=== PATIENT | female | born 1985 | race Caucasian/White ===

== ENCOUNTER → 2018-02-02 | Outpatient (CLI) | payer SELFPAY ==
[~2018-02-02] MED LIST: BCP'S; CIPR250 PO; CIPR500 PO; CYCL10 PO; HYDACE5 PO; NAPR500 PO; PHENA200 PO
[2018-02-03 16:14] LABS: Appearance, Urine Hazy (Clear); Bilirubin, Urine Neg (Neg); Blood, Urine 1+ (Neg); Color, Urine Yellow (P-Yellow); Glucose Qualitative, Urine Neg (Neg); Ketones, Urine Neg (Neg); Leukocyte Esterase, Urine 2+ (Neg); Nitrite, Urine Neg (Neg); Protein, Urine 2+ (Neg); Urobilinogen, Urine NORM (Normal)
[2018-02-03 16:37] LABS: Bacteria Not Seen /hpf; Red Blood Cells, Urine 25-50 /hpf (0-2); Squamous Epithelial Cells Not Seen /hpf (Few); White Blood Cells, Urine 25-50 /hpf (0-5)
== END | disposition home or self-care (01) ==
LOC: LAB 17:25 → LAB SHORT 17:25
PROVIDERS: Nurse Practitioner Family
DX: N39.0 Urinary tract infection, site not specified (principal)
CPT/HCPCS: 81001; 87077; 87086; 87186

== ENCOUNTER → 2019-06-13 | Outpatient (CLI) | payer OTHER | END | disposition home or self-care (01) | LOC: LAB SHORT 16:30 → LAB 16:30 | DX: O09.522 Supervision of elderly multigravida, second trimester (principal); Z3A.24 24 weeks gestation of pregnancy | CPT/HCPCS: 87086 ==

== ENCOUNTER → 2019-08-17 | Outpatient (CLI) | payer OTHER | END | disposition home or self-care (01) | LOC: LAB SHORT 12:22 → LAB 12:22 | DX: Z34.02 Encounter for supervision of normal first pregnancy, second trimester (principal) | CPT/HCPCS: 87086 ==

== ENCOUNTER → 2019-09-06 | Outpatient (CLI) | payer OTHER ==
[~2019-09-06] MED LIST changes: +CYAN500; +HYDPAM50 PO; +IBUP800 PO; +PRENATAL TABLE1 EAC2 PO; +SERT25 PO; +Vitamin D2000 UNIT
== END | disposition home or self-care (01) ==
LOC: LAB SHORT 15:58 → LAB 15:58
DX: O09.523 Supervision of elderly multigravida, third trimester (principal); Z3A.36 36 weeks gestation of pregnancy
CPT/HCPCS: 87081; 87653

== ENCOUNTER 2019-09-18 21:08 | Inpatient (IN) | payer OTHER ==
[~2019-09-18] VITALS: Ht 170.2 cm; Wt 101.0 kg
[~2019-09-18 21:08] MED LIST changes: -CYAN500; -HYDPAM50 PO; -IBUP800 PO; -PRENATAL TABLE1 EAC2 PO; -SERT25 PO; -Vitamin D2000 UNIT
[2019-09-18 21:43] LABS: BASOPHILS ABSOLUTE AUTO 0.02 K/mm3 (0.00-0.23); BASOPHILS PERCENT AUTO 0 % (0-2); EOSINOPHILS ABSOLUTE AUTO 0.03 K/mm3 (0.00-0.68); EOSINOPHILS PERCENT AUTO 0 % (0-6); Hematocrit 39.2 % (33.0-51.0); Hemoglobin 13.3 g/dL (11.5-16.0); IMMATURE GRAN ABSOLUTE AUTO 0.04 K/mm3 (0.00-0.10); IMMATURE GRAN PERCENT AUTO 0 % (0-1); LYMPHOCYTES ABSOLUTE AUTO 1.87 K/mm3 (0.84-5.20); LYMPHOCYTES PERCENT AUTO 20 % (21-46); MONOCYTES ABSOLUTE AUTO 0.82 K/mm3 (0.16-1.47); MONOCYTES PERCENT AUTO 9 % (4-13); Mean Corpuscular HGB Conc 33.9 g/dL (31.5-36.5); Mean Corpuscular Volume 88 fL (80-100); NEUTROPHILS ABSOLUTE AUTO 6.49 K/mm3 (1.96-9.15); NEUTROPHILS PERCENT AUTO 70 % (41-73); Platelet Count 200 K/mm3 (150-400); RDW Coefficient Variation 14.9 % (11.7-14.2); RDW Standard Deviation 47.2 fL (35.1-46.3); Red Blood Cell Count 4.44 M/mm3 (3.80-5.20); White Blood Cell Count 9.27 K/mm3 (4.00-11.30)
[2019-09-18] MEDS ORDERED: SERT25 PO (22:17)
[2019-09-18] MEDS ORDERED: PRENATAL TABLE1 EAC2 PO (22:18)
[2019-09-18] MEDS ORDERED: HYDPAM50 PO (22:20)
[2019-09-19 01:42] LABS: PCO2 Cord - Venous 42.8 mmHg (40-50); PO2 Cord - Venous 30.1 mmHg (28-32); pH Umbilical Cord - Venous 7.28 (7.26-7.35)
[2019-09-19 12:35] LABS: BASOPHILS ABSOLUTE AUTO 0.03 K/mm3 (0.00-0.23); BASOPHILS PERCENT AUTO 0 % (0-2); EOSINOPHILS PERCENT AUTO 0 % (0-6); Hemoglobin 11.5 g/dL (11.5-16.0); IMMATURE GRAN ABSOLUTE AUTO 0.05 K/mm3 (0.00-0.10); IMMATURE GRAN PERCENT AUTO 0 % (0-1); LYMPHOCYTES ABSOLUTE AUTO 1.78 K/mm3 (0.84-5.20); LYMPHOCYTES PERCENT AUTO 13 % (21-46); MONOCYTES ABSOLUTE AUTO 1.04 K/mm3 (0.16-1.47); MONOCYTES PERCENT AUTO 8 % (4-13); Mean Corpuscular HGB 30.4 pg (26.0-34.0); Mean Corpuscular HGB Conc 33.8 g/dL (31.5-36.5); Mean Corpuscular Volume 90 fL (80-100); Mean Platelet Volume 9.8 fL (9.1-12.4); NEUTROPHILS ABSOLUTE AUTO 10.74 K/mm3 (1.96-9.15); NEUTROPHILS PERCENT AUTO 79 % (41-73); Platelet Count 173 K/mm3 (150-400); RDW Coefficient Variation 14.9 % (11.7-14.2); RDW Standard Deviation 48.2 fL (35.1-46.3); Red Blood Cell Count 3.78 M/mm3 (3.80-5.20); White Blood Cell Count 13.64 K/mm3 (4.00-11.30)
[2019-09-20] MEDS ORDERED: IBUP800 PO (08:23)
--- NOTE | 2019-09-20 08:51 | NUR ---
D/C INSTRUCTIONS DISCUSSED AND SIGNED. PT VERY ANXIOUS TO GET HOME WITH 10 YEAR OLD AUTISTIC SON IN THE ROOM. PT CEDRICK NB AND SELF CARE. DOESN'T HAVE ANY QUESTIONS AT THIS TIME. F/U APPOINTMENTS MADE. PT TO CALL IF ANY QUESTIONS
== END 2019-09-20 08:54 | disposition home or self-care (01) | DRG 807 ==
LOC: OBS 21:08 → BC 21:24
PROVIDERS: ADMIT Family Medicine
PROC: 10E0XZZ Delivery of Products of Conception, External Approach (ICD-10-PCS; principal; 2019-09-19)
DX: O70.0 First degree perineal laceration during delivery (principal); Z37.0 Single live birth; Z3A.38 38 weeks gestation of pregnancy
CPT/HCPCS: 36415; 82803; 85025; 86850; 86900; 86901; 90686; J2001; J2590; J3010; J7120

== ENCOUNTER → 2019-10-10 | Outpatient (CLI) | payer OTHER ==
[~2019-10-10] MED LIST changes: +CYAN500; +HYDPAM50 PO; +IBUP800 PO; +PRENATAL TABLE1 EAC2 PO; +SERT25 PO; +Vitamin D2000 UNIT
[2019-10-11 06:31] LABS: Candida species (DNA Probe) Negative (NEGATIVE); G. vaginalis (DNA Probe) Positive (NEGATIVE); T. vaginalis (DNA Probe) Negative (NEGATIVE)
== END | disposition home or self-care (01) ==
LOC: LAB 14:48 → LAB SHORT 14:48
PROVIDERS: Family Medicine
DX: N89.8 Other specified noninflammatory disorders of vagina (principal)
CPT/HCPCS: 87070; 87205; 87480; 87510; 87660

== ENCOUNTER → 2019-11-13 | Outpatient (CLI) | payer OTHER ==
[2019-11-13 18:27] LABS: BASOPHILS ABSOLUTE AUTO 0.02 K/mm3 (0.00-0.23); BASOPHILS PERCENT AUTO 0 % (0-2); EOSINOPHILS ABSOLUTE AUTO 0.05 K/mm3 (0.00-0.68); EOSINOPHILS PERCENT AUTO 1 % (0-6); Hematocrit 40.7 % (33.0-51.0); Hemoglobin 13.8 g/dL (11.5-16.0); IMMATURE GRAN ABSOLUTE AUTO 0.01 K/mm3 (0.00-0.10); IMMATURE GRAN PERCENT AUTO 0 % (0-1); LYMPHOCYTES ABSOLUTE AUTO 2.27 K/mm3 (0.84-5.20); LYMPHOCYTES PERCENT AUTO 40 % (21-46); MONOCYTES PERCENT AUTO 9 % (4-13); Mean Corpuscular HGB 29.4 pg (26.0-34.0); Mean Corpuscular HGB Conc 33.9 g/dL (31.5-36.5); Mean Corpuscular Volume 87 fL (80-100); Mean Platelet Volume 9.8 fL (9.1-12.4); NEUTROPHILS ABSOLUTE AUTO 2.81 K/mm3 (1.96-9.15); NEUTROPHILS PERCENT AUTO 50 % (41-73); Platelet Count 260 K/mm3 (150-400); RDW Coefficient Variation 13.2 % (11.7-14.2); RDW Standard Deviation 41.1 fL (35.1-46.3); Red Blood Cell Count 4.69 M/mm3 (3.80-5.20); White Blood Cell Count 5.66 K/mm3 (4.00-11.30)
[2019-11-13 19:44] LABS: Alanine Aminotransfer (ALT/SGP 43 U/L (12-78); Albumin, Blood 3.9 g/dL (3.4-5.0); Albumin/Globulin Ratio 1.1 (0.8-1.8); Alk Phos 123 U/L (50-136); Anion Gap 5 mmol/L (6-16); Aspartate Aminotrans (AST/SGOT 19 U/L (12-37); Bilirubin, Total 0.2 mg/dL (0.1-1.0); Blood Urea Nitrogen 11 mg/dL (8-24); Bun/Creatinine Ratio 15.7 (12.0-20.0); CO2, Blood 23 mmol/L (21-32); Calcium, Blood 8.7 mg/dL (8.5-10.1); Chloride, Blood 111 mmol/L (98-108); Globulin, Blood 3.4 g/dL (2.2-4.0); Glomerular Filtration Rate >60 (60-); Glucose, Blood 77 mg/dL (70-99); Potassium, Blood 3.9 mmol/L (3.5-5.5); Sodium, Blood 139 mmol/L (136-145); Total Protein, Blood 7.3 g/dL (6.4-8.2)
[2019-11-15 15:07] LABS: HPV 16 Negative (Negative); HPV 18 Negative (Negative); HPV OTHER HR TYPES Negative (Negative)
== END | disposition home or self-care (01) ==
LOC: LAB 17:27 → LAB SHORT 17:27
PROVIDERS: Obstetrics & Gynecology
DX: Z01.812 Encounter for preprocedural laboratory examination (principal); Z12.4 Encounter for screening for malignant neoplasm of cervix
CPT/HCPCS: 80053; 85025; 87624; G0123

== ENCOUNTER 2019-11-21 09:56 | Day surgery (SDC) | payer OTHER ==
[~2019-11-21] VITALS: Ht 170.2 cm; Wt 84.9 kg
[~2019-11-21 09:56] MED LIST changes: -CYAN500; -Vitamin D2000 UNIT
[2019-11-21] MEDS ORDERED: Vitamin D2000 UNIT (10:37)
[2019-11-21] MEDS ORDERED: CYAN500 (10:37)
--- NOTE | 2019-11-21 11:31 | NUR ---
11/21/19 1131 Michael Ji ABDOMEN PREPPED USING DURAPREP BY [facility].LISA
== END 2019-11-21 12:59 | disposition home or self-care (01) ==
LOC: ORSCSDS 09:56
PROVIDERS: Obstetrics & Gynecology
PROC: 0UT74ZZ Resection of Bilateral Fallopian Tubes, Percutaneous Endoscopic Approach (ICD-10-PCS; principal; 2019-11-21 11:00)
DX: Z30.2 Encounter for sterilization (principal); K21.9 Gastro-esophageal reflux disease without esophagitis
CPT/HCPCS: 88302; J0171; J1100; J2250; J2405; J2704; J2710; J3010; J7120

== ENCOUNTER → 2022-01-23 | Outpatient (CLI) | payer OTHER ==
[~2022-01-23] MED LIST changes: +CYAN500; +Vitamin D2000 UNIT
[2022-01-23 10:49] LABS: BASOPHILS ABSOLUTE AUTO 0.02 K/mm3 (0.00-0.23); BASOPHILS PERCENT AUTO 0 % (0-2); EOSINOPHILS ABSOLUTE AUTO 0.03 K/mm3 (0.00-0.68); EOSINOPHILS PERCENT AUTO 1 % (0-6); Hematocrit 42.8 % (33.0-51.0); Hemoglobin 14.4 g/dL (11.5-16.0); IMMATURE GRAN ABSOLUTE AUTO 0.02 K/mm3 (0.00-0.10); IMMATURE GRAN PERCENT AUTO 0 % (0-1); LYMPHOCYTES ABSOLUTE AUTO 1.79 K/mm3 (0.84-5.20); LYMPHOCYTES PERCENT AUTO 29 % (21-46); MONOCYTES ABSOLUTE AUTO 0.37 K/mm3 (0.16-1.47); MONOCYTES PERCENT AUTO 6 % (4-13); Mean Corpuscular HGB 29.4 pg (26.0-34.0); Mean Corpuscular HGB Conc 33.6 g/dL (31.5-36.5); Mean Corpuscular Volume 87 fL (80-100); Mean Platelet Volume 9.5 fL (9.1-12.4); NEUTROPHILS PERCENT AUTO 64 % (41-73); Platelet Count 248 K/mm3 (150-400); RDW Coefficient Variation 12.9 % (11.7-14.2); RDW Standard Deviation 40.8 fL (35.1-46.3); White Blood Cell Count 6.23 K/mm3 (4.00-11.30)
[2022-01-23 10:59] LABS: Alanine Aminotransfer (ALT/SGP 29 U/L (12-78); Albumin, Blood 3.8 g/dL (3.4-5.0); Albumin/Globulin Ratio 1.2 (0.8-1.8); Alk Phos 89 U/L (40-126); Anion Gap 6 mmol/L (6-16); Aspartate Aminotrans (AST/SGOT 17 U/L (12-37); Bilirubin, Total 0.6 mg/dL (0.1-1.0); Blood Urea Nitrogen 6 mg/dL (8-24); Bun/Creatinine Ratio 6.7 (12.0-20.0); CO2, Blood 27 mmol/L (21-32); Calcium, Blood 8.9 mg/dL (8.5-10.1); Chloride, Blood 105 mmol/L (98-108); Globulin, Blood 3.2 g/dL (2.2-4.0); Glomerular Filtration Rate >60 (60-); Glucose, Blood 94 mg/dL (70-99); Potassium, Blood 3.7 mmol/L (3.5-5.5); Sodium, Blood 138 mmol/L (136-145)
== END | disposition home or self-care (01) ==
LOC: LAB SHORT 10:44
PROVIDERS: General Practice
DX: B34.9 Viral infection, unspecified (principal)
CPT/HCPCS: 80053; 85025

== ENCOUNTER → 2023-03-01 | Outpatient (CLI) | payer OTHER ==
[~2023-03-01] MED LIST changes: +ALLEGRA ALLERG180 MG PO; +BUPR150ER PO; +FAMO20 PO; +GABA300 PO; +HYDR1TAB94 PO; +Inderal40 MG PO; +Venlafaxine HC225 MG PO
[2023-03-03 14:09] LABS: HPV 16 Negative (Negative); HPV 18 Negative (Negative); HPV OTHER HR TYPES Negative (Negative)
== END | disposition home or self-care (01) ==
LOC: LAB SHORT 12:00 → LAB 12:00
PROVIDERS: Family Medicine
DX: Z12.4 Encounter for screening for malignant neoplasm of cervix (principal)
CPT/HCPCS: 87624; G0145

== ENCOUNTER 2024-05-10 10:07 | Day surgery (SDC) | payer OTHER ==
[2024-05-10] VITALS (11 sets, daily range): BP systolic 117–154; BP diastolic 71–101
[~2024-05-10] VITALS: Ht 172.7 cm; Wt 100.1 kg
[~2024-05-10 10:07] MED LIST changes: +CeFAZolin Sodium 2,000 MG in NS 100 ML IV SCH; +Dexamethasone Sod Phos 10 MG/ML 1ML VIAL ONE; +FentaNYL Citrate 50 MCG/ML 2 ML Injection ONE; +Ketorolac Tromethamine 30mg Vial ONE; +Lactated Ringer's 1,000 ML IV SCH; +Ondansetron HCl 2 MG / ML 2ML Vial ONE; +Rocuronium Bromide 10 MG/ML 5ML Injection IV ONE; +Sugammadex Sodium 200 MG/2ML SDV (100 MG/ML) ONE; +propofoL 20 ML IV ONE
[2024-05-10] MEDS ORDERED: Midazolam HCl 1MG / ML 2ML Vial IV PRN (10:35)
[2024-05-10] MEDS ORDERED: Lidocaine HCl 1% 5 ML SYR INJ ONE (10:35)
[2024-05-10] MEDS ORDERED: Bupivacaine 0.5% Inj 10 ML Vial ONE (11:31)
[2024-05-10] MEDS ORDERED: Rocuronium Bromide 10 MG/ML 5ML Injection IV ONE (12:56)
[2024-05-10] MEDS ORDERED: HYDROmorphone HCl/Pf 1MG SYR IV PRN (13:50)
[2024-05-10] MEDS ORDERED: FentaNYL Citrate 50 MCG/ML 2 ML Injection ONE (13:51)
[2024-05-10] MEDS ORDERED: Simethicone 80 MG Chew PO PRN (13:55)
[2024-05-10] MEDS ORDERED: OxyCODONE HCL 5 MG TAB PO PRN ×2 (13:55→14:00)
[2024-05-10] MEDS ORDERED: DiphenhydrAMINE HCL 25 MG Cap PO PRN (13:55)
[2024-05-10] MEDS ORDERED: Metoclopramide HCl 5MG / ML 2ML Vial IV PRN (13:55)
[2024-05-10] MEDS ORDERED: Ondansetron HCl 2 MG / ML 2ML Vial IV PRN (13:55)
[2024-05-10] MEDS ORDERED: Lactated Ringer's 1,000 ML IV SCH (13:55)
[2024-05-10] MEDS ORDERED: Naloxone HCl 0.4MG / ML 1ML Vial IV PRN (14:00)
--- NOTE | 2024-05-10 14:31 | NUR ---
PATIENT ARRIVED FROM PACU TODAY. POD 0 LAP HYSTER PATIENT IS DROWSY BUT IS A&OX4 AND ANSWERS QUESTIONS APPROPRIATELY. VS ARE WNL AND IS ON RA. PATIENT DENIES PAIN AT THIS TIME. SHE HAS X4 ABD LAP SITES WITH WOUND GLUE THAT ARE C/D/I. BENNY PAD IN PLACE AND HAS SCANT AMOUNT OF BLOOD OUTPUT ON IT. PATIENT IS LAYING IN BED WITH CALL LIGHT IN REACH.
[2024-05-10] MEDS ORDERED: Ibuprofen 400 MG Tab PO SCH (16:00)
--- NOTE | 2024-05-10 16:33 | NUR ---
SHIFT SUMMARY: POD 0 LAP HYSTER PATIENT IS A&OX4. VS ARE WNL AND IS ON RA. PATIENTS PAIN IS MANAGED WITH PO PAIN MEDS. HER ABD HAS X4 LAP SITES WITH WOUND GLUE THAT ARE C/D/I. DENIES NAUSEA OR VOMITING. BENNY PAD IN PLACE WITH SCANT AMOUNT OF BLOOD OUTPUT ON IT. SHE IS TOLERATING PO INTAKE AND HAS VOIDED SCANT AMOUNT OF URINE. THIS NURSE EDUCATED THE PATIENT ON THAT SHE NEEDS TO VOID AT LEAST 100ML AT ONCE BEFORE DISCHARGING. PATIENT VERBALIZED UNDERSTANING OF EDUCATION. SHE IS INDEP. IN THE ROOM. PATIENT CALLS APPROPRIATELY. SHE IS CURRENTLY LAYING IN BED WITH CALL LIGHT IN REACH.
[2024-05-10] MEDS ORDERED: ACET500 PO (17:03)
[2024-05-10] MEDS ORDERED: IBUP800 PO (17:03)
[2024-05-10] MEDS ORDERED: OXYC5 PO (17:04)
--- NOTE | 2024-05-10 17:13 | NUR ---
DISCHARGE NOTE: PATIENT WAS EDUCATED ON DISCHARGE INSTRUCTIONS. SHE VERBALIZED UNDERSTANDING OF INSTRUCTIONS AND HAD NO FURTHER QUESTIONS AT THIS TIME. PAIN IS MANAGED WITH PO PAIN MEDS. HER ABD HAS X4 LAP SITES WITH WOUND GLUE THAT ARE C/D/I. BENNY PAD HAS SCANT AMOUNT OF BLOOD ON IT. SHE IS TOLERATING PO INTAKE AND IS VOIDING. PATIENT IS DRESSED AND HAS PERSONAL ITEMS IN THE ROOM GATHERED.
--- NOTE | 2024-05-10 17:27 | NUR ---
IV WAS TAKEN OUT AND WNL. SHE IS BEING WHEELCHAIRED OUT TO HER HUSBANDS CAR TO BE TAKEN HOME.
[2024-05-10] MEDS ORDERED: Acetaminophen 500 MG Tab PO SCH (18:00)
[2024-05-10] MEDS ORDERED: Ketorolac Tromethamine 30mg Vial IV SCH (18:00)
[2024-05-10] MEDS ORDERED: Loratadine 10 MG Tab PO SCH (21:00)
[2024-05-10] MEDS ORDERED: Venlafaxine HCl 75 MG CapCR PO SCH (21:00)
[2024-05-10] MEDS ORDERED: Gabapentin 300 MG Cap PO SCH (21:00)
[2024-05-10] MEDS ORDERED: Famotidine 20 MG Tab PO SCH (21:00)
[2024-05-11] MEDS ORDERED: buPROPion HCL 150 MG TAB.SR.12H PO SCH (09:00)
[2024-05-11] MEDS ORDERED: Polyethylene Glycol 3350 17 gm PO SCH (09:00)
[2024-05-11] MEDS ORDERED: Enoxaparin 40 MG/0.4 ML SYR SC SCH (09:00)
== END 2024-05-10 17:41 | disposition home or self-care (01) ==
LOC: ORSCMMR 10:07 → ORD 11:00 → ORSCMMR 11:00 → SURS 14:48 → ORSCMMR 17:41 → ORD 05-21 07:30
PROVIDERS: Obstetrics & Gynecology
PROC: 0UT9FZZ Resection of Uterus, Via Natural or Artificial Opening With Percutaneous Endoscopic Assistance (ICD-10-PCS; principal; 2024-05-10 11:00)
DX: N93.8 Other specified abnormal uterine and vaginal bleeding (principal); N80.03 Adenomyosis of the uterus; I10 Essential (primary) hypertension; K21.9 Gastro-esophageal reflux disease without esophagitis; F41.9 Anxiety disorder, unspecified; F32.A Depression, unspecified; E66.9 Obesity, unspecified; Z68.33 Body mass index [BMI] 33.0-33.9, adult; Z79.899 Other long term (current) drug therapy
CPT/HCPCS: 86850; 86900; 86901; 88307; A9270; J0690; J1100; J1885; J2250; J2405; J2704; J3010; J7120